=== PATIENT | female | born 1955 | race Caucasian/White ===

== ENCOUNTER 2025-03-18 14:15 | Outpatient (CLI) | payer MEDICARE, BC, SELFPAY ==
--- NOTE | 2025-03-18 14:00 | DI.RAD_ITS ---
Exam(s) XR HIP LT COMPLETE AP PELVIS EXAM: XR HIP LT COMPLETE AP PELVIS CLINICAL HISTORY: left hip DJD. TECHNIQUE: 2D digital imaging was performed. COMPARISON: No exams were available for comparison FINDINGS: Two views No evidence of pelvic nor hip fracture. Right hip appears unremarkable. There are moderate osteoarthritic degenerative changes in the left h ip with moderate joint space narrowing and small marginal osteophytes. Bone density normal. No osse ous lesions. IMPRESSION: Moderate osteoarthritic degenerative changes in the left hip. DATA REPOSITORY: RADIATION DOSE DELIVERED:
== END 2025-03-18 14:16 | disposition home or self-care (01) ==
LOC: DIORS 14:15
PROVIDERS: PCP Family Medicine; Referring Provider Family Medicine; Visit Provider Student in an Organized Health Care Education/Training Program
DX: M16.12 Unilateral primary osteoarthritis, left hip (principal)
CPT/HCPCS: 99214; 73502

== ENCOUNTER 2025-05-20 03:25 | Outpatient (CLI) | payer MEDICARE, BC, SELFPAY ==
[2025-05-20 11:19] LABS: HCT 43.7 % (36.0-46.0); HGB 14.1 g/dL (11.2-15.7); MCH 30.4 pg (27.0-33.0); MCHC 32.3 % (32.0-36.0); MCV 94 fL (80-95); MPV 10.7 fL (8.0-11.0); Platelet Count 246 10^3/uL (130-400); RBC 4.64 10^6/uL (3.93-5.22); RDW 12.8 % (11.7-14.6); RDW-SD 44.0 fL; WBC 6.20 10^3/uL (4.4-10.8)
[2025-05-20 12:10] LABS: Anion Gap 10.2 mmol/L (3-11); BUN 22 mg/dL (7-18); CO2 26.8 mmol/L (21.0-32.0); Calcium 9.7 mg/dL (8.5-10.1); Chloride 103 mmol/L (98-107); Estimated GFR 68.35 (mL/min/1.73m2); Glucose 105 mg/dL (74-106); Potassium 3.8 mmol/L (3.5-5.1); Sodium 140 mmol/L (136-145)
== END 2025-05-20 03:26 | disposition home or self-care (01) ==
LOC: LBO 03:25
PROVIDERS: PCP Family Medicine; Visit Provider Student in an Organized Health Care Education/Training Program
DX: M16.12 Unilateral primary osteoarthritis, left hip (principal); Z01.818 Encounter for other preprocedural examination
CPT/HCPCS: 36415; 80048; 85027

== ENCOUNTER 2025-05-29 05:52 | Day surgery (SDC) | payer MEDICARE, BC, SELFPAY ==
[2025-05-29] VITALS (18 sets, daily range): BP systolic 116–154; BP diastolic 38–81; PULSE 60–77; RESP 11–21; TEMP 36.1–36.6; O2SAT 95–99; BMI 19.4
--- NOTE | 2025-05-29 05:06 | ANES.PREOP_ITS ---
General Info Date of Service Date Performed: 05/29/25 Height: 5 ft 5 in Weight: 53.07 kg Body Mass Index (BMI): 19.4 Surgical Procedure: Operation Date: 05/29/25 07:50 Proposed Procedure Side Surgeon p Hip Total Hip Anterior, Corail Left Rolan Rm MD Meds Allergies and Home Medications Allergies Allergy/AdvReac Type Severity Reaction Status Date / Time No Known Allergies Allergy Verified 05/29/25 06:12 Home Medication ?Medication ?Instructions ?Recorded amlodipine 5 mg tablet 5 mg PO HS 01/01/25 losartan 100 mg tablet 100 mg PO DAILY 01/01/25 pravastatin 10 mg tablet 10 mg PO HS 01/01/25 paroxetine HCl 20 mg tablet 20 mg PO DAILY 03/18/25 latanoprost 0.005 % eye drops 1 drp ophthalmic (eye) Q PM 05/24/25 Current Visit Medications: Current Medications Generic Name Dose Route Start Last Admin Trade Name Freq PRN Reason Stop Dose Admin Acetaminophen 1,000 mg 05/29/25 06:00 Acetaminophen 500 Mg Tab PO 05/29/25 23:59 PREOP NIRMALA Celecoxib 400 mg 05/29/25 06:00 Celecoxib 200 Mg Cap PO 05/29/25 23:59 PREOP NIRMALA Gabapentin 300 mg 05/29/25 06:00 Gabapentin 300 Mg Cap PO 05/29/25 23:59 PREOP NIRMALA Ringer's Solution 1,000 mls @ 80 mls/hr 05/29/25 06:00 IV 05/29/25 23:59 INFUSION NIRMALA Tranexamic Acid/Sodium Chloride 1,000 mg in 100 mls @ 600 mls/hr 05/29/25 06:00 IVPB 05/29/25 23:59 PREOP NIRMALA Cefazolin Sodium/Dextrose 2 gm in 50 mls @ 100 mls/hr 05/29/25 06:00 Ancef Duplex IVPB 05/29/25 23:59 PREOP NIRMALA IV Miscellaneous Supplies 1 each 05/29/25 06:00 Iv Access IV 05/29/25 23:59 DIRECTED NIRMALA Sodium Chloride 0 ml 05/29/25 06:00 Normal Saline Flush 10 Ml Syr IV 05/29/25 23:59 PRN PRN Sodium Chloride 0 ml 05/29/25 06:00 Normal Saline 10 Ml Vial IJ 05/29/25 23:59 DIRECTED PRN Sterile Water 0 ml 05/29/25 06:00 Water,Injection,Sterile 10 Ml Vial IJ 05/29/25 23:59 DIRECTED PRN PFSH Active Problems Active Problems: Problem Status Onset Code Degenerative joint disease of left hip Chronic M16.12 Rosacea Acute L71.9 Osteoporosis Chronic M81.0 Onychomycosis Acute B35.1 Hypertensive disorder Chronic I10 Hyperlipidemia Acute E78.5 Goiter Acute E04.9 Anxiety Chronic F41.9 Surgical History Surgical History History of melanoma excision DOS 10/17/03--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 Tobacco Smoking/Tobacco Use Status: Never Passive smoking exposure: Yes Alcohol Alcohol Intake: current Alcohol intake frequency: holidays/special occasions only Substance Use Substance use: Never Substance use type: does not use Vital Signs and Lab Results Vital Signs Most Recent Vital Signs in EMR: Temp Pulse Resp BP Pulse Ox 36.6 C 68 18 154/81 H 97 05/29/25 06:00 05/29/25 06:00 05/29/25 06:00 05/29/25 06:00 05/29/25 06:00 Lab Results Complete Blood Count: WBC, (4.4-10.8) 6.20 10^3/uL 05/20/25, 11:02 RBC, (3.93-5.22) 4.64 10^6/uL 05/20/25, 11:02 Hgb, (11.2-15.7) 14.1 g/dL 05/20/25, 11:02 Hct, (36.0-46.0) 43.7 % 05/20/25, 11:02 Plt Count, (130-400) 246 10^3/uL 05/20/25, 11:02 Complete Metabolic Panel: Sodium, (136-145) 140 mmol/L 05/20/25, 11:02 Potassium, (3.5-5.1) 3.8 mmol/L 05/20/25, 11:02 Chloride, (98-107) 103 mmol/L 05/20/25, 11:02 Carbon Dioxide, (21.0-32.0) 26.8 mmol/L 05/20/25, 11 :02 BUN, (7-18) 22 mg/dL H 05/20/25, 11:02 Creatinine, (0.55-1.02) 0.9 mg/dL 05/20/25, 11:02 Est GFR (CKD-EPI 2020), (mL/min/1.73m2) 68.35 05/20/25, 11:02 Calcium, (8.5-10.1) 9.7 mg/dL 05/20/25, 11:02 Glucose, (74-106) 105 mg/dL 05/20/25, 11:02 Anesthesia Assessment and Plan Anesthesia History Personal History: No History of Anesthesia Complications Family History: No Family History of Anesthesia Complications Exercise Tolerance Exercise Tolerance: Metabolic Equivalents>4 Cardiac & Pulmonary Exam Cardiac Exam: Normal S1/S2 Heart Sounds Pulmonary Exam: Clear Bilateral Breath Sounds Implantable Cardiac Device Does patient have a Pacemaker or an ICD?: No Airway Exam Known Difficult Airway: No Mallampati Class: 3 Mouth Opening: Normal (> 3cm) Thyromental Distance: Greater than 3 cm Neck Range of Motion: Limited ROM Neck Circumference: Normal Teeth Condition: Normal Dentition ASA Classification ASA Score: ASA 2 Emergency Case?: No NPO Status NPO Status: NPO Clears >2 hours, Solids >8 hours Anesthesia Plan Resuscitation Status: Full Code Anesthesia Technique: Spinal Anesthesia Airway Planned: Natural Airway Monitors Used: Standard Monitors Preoperative Comments:: 69 yo female for ADRIANA. Sig PMHx: HTN (amlodipine, losartan. 132/74 at PCP), osteoporosis, anxiety. never smoker, occ EtOH. ECG (PCP): sinus Labs (PCP): WNL
[2025-05-29] MEDS: Gabapentin 300 MG CAP PO (06:30)
[2025-05-29] MEDS: Acetaminophen 500 MG TAB 1000 MG PO (06:30)
[2025-05-29] MEDS: Celecoxib 200 MG CAP 400 MG PO (06:30)
[2025-05-29] MEDS: Lactated Ringers 1,000 ML 80 ML IV (06:44)
--- NOTE | 2025-05-29 07:19 | PDOC.DSDIS_ITS ---
Date of service: 05/29/25 Discharge Plan Disposition Patient Disposition: Home Condition: Good Discharge Details Reason For Visit: L THR Attending Provider: Rolan Rm Primary Care Provider: Hero Rondon Home Meds and New Rx's Prescriptions: New acetaminophen 500 mg tablet 1,000 mg PO TID Qty: 90 3RF aspirin 81 mg tablet,delayed release (DR/EC) 81 mg PO BID Qty: 60 0RF celecoxib 200 mg capsule 200 mg PO BID Qty: 60 0RF dexamethasone 4 mg tablet 4 mg PO DAILY Qty: 2 0RF docusate sodium 100 mg capsule 100 mg PO BID PRNQty: 28 0RF pantoprazole 40 mg tablet,delayed release (DR/EC) 40 mg PO DAILY Qty: 14 0RF oxycodone 5 mg tablet 5 mg PO Q4H MDD 6 tabs PRN (Reason: pain) Qty: 12 0RF Continued amlodipine 5 mg tablet 5 mg PO HS losartan 100 mg tablet 100 mg PO DAILY pravastatin 10 mg tablet 10 mg PO HS paroxetine HCl 20 mg tablet 20 mg PO DAILY latanoprost 0.005 % drops 1 drp ophthalmic (eye) QPM Patient Comments: PLACE ONE DROP INTO IN EACH EYE AT BEDTIME Discharge Instructions Additional Instructions: Total Hip Discharge Instructions Activity: The most important activity is to walk. You should try to take short walks a few times a day. You have no restrictions on movement or positioning, but do not try to force what you do. You will find some stiffness and weakness with hip flexion (lifting your knee). Do not try to strengthen this too early, continue to practice walking and stairs and this will come. - Outpatient physical therapy can be helpful to help return you to a normal gait and improve your flexibility and strength. This can start around 2 weeks. For some patients, it?s not necessary. Usually this is determined at the time of discharge or at the first post-operative visit. - You should wear the VELIA hose on both legs for 2 weeks. Dressing: Keep the surgical dressing in place for at least one week. After the first week it may be removed and replace with light gauze and tape or nothing. It may get wet after 3 days but avoid soaking the dressing. If it gets wet, just lightly pat dry. It is important to always keep some gauze between skin folds, especially when you are sitting. Spend some time with the wound exposed when you are lying flat as the incision does wrinkle onto itself. Medications: - You should take Tylenol and an anti-inflammatory Celebrex as your primary pain control medications. If the Celebrex is too expensive or not covered, please call the office for another alternative (Advil/Ibuprofen or Naproxen/Aleve). - You have been prescribed a stronger pain medication Oxycodone for breakthrough pain, take as needed as prescribed. - You have also been prescribed a stomach acid reduction agent Pantoprozole to help reduce stomach acid and reflux. - You have also been prescribed Decadron to help with post-operative nausea and pain. You will take this for two days starting tomorrow. - You will be taking Aspirin 81mg twice a day for DVT prevention unless instructed otherwise. - If you have constipation you should take Colace or Miralax (both [id number]). It takes most people 3-4 days to have a bowel movement. Follow-up: 2 weeks If you have any acute concerns or questions, please do not hesitate to contact the office at [phone]. You may contact Dr. Rm with any questions after hours through the hospital at [phone] or on his cell phone at [phone]. Referrals: Rolan Rm MD [ [facility] STAFF PHYSICIAN, Orthopaedic Surgical] Equipment/Supplies: Walker Activity:: Activity as Tolerated Shower/Bathe:: 72 hours Diet:: As Tolerated Discharge Orders Discharge Orders: Discharge Order (Routine); Ordered 05/29/25 Ordered By: Abhijit Araujo DS: Diagnosis Discharge Diagnosis (1) Degenerative joint disease of left hip: Status: Chronic
[2025-05-29] MEDS: ceFAZolin 2 GM/50 ML BAG IVPB (07:49)
[2025-05-29] MEDS: TRANEXAMIC ACID/SOD. CHL. 1,000 MG/100 ML BAG 600 MG IVPB (07:51)
--- NOTE | 2025-05-29 09:01 | DI.RAD_ITS ---
Exam(s) XR HIP LT IN OR EXAM: XR HIP LT IN OR CLINICAL HISTORY: Degenerative joint disease of left hip TECHNIQUE: 2D and realtime digital imaging was performed. CONTRAST MATERIAL: Refer to procedure report. COMPARISON: CR XR HIP MIN 2V LT from 11/26/2024 CR XR HIP LT COMPLETE AP PELVIS from 03/18/2025 FINDINGS: Fluoroscopy was provided for Dr. Rm during the performance of a left total hip arthroplasty. Please refer to the procedure report for complete details. Ka,r=2.06 mGy IMPRESSION: RADIATION DOSE DELIVERED: 0.0 0.0 0
--- NOTE | 2025-05-29 09:07 | W.PM.OP ---
Operative Note Operative Note PRE-OP DIAGNOSIS: Left Hip Osteoarthritis POST-OP DIAGNOSIS: other (Left Hip Osteoarthritis and Synovitis) PROCEDURE: Left Anterior Total Hip Arthroplasty with Intraoperative Navigation SURGEON: Rolan Rm PBX REPAIRER: Abhijit Araujo ANESTHESIA TYPE: Spinal Refer to Anesthesia Record ESTIMATED BLOOD LOSS: 150 PATHOLOGY: none sent TOURNIQUET TIME: 0 COMPLICATIONS: None Patient was transported to: PACU Patient's condition: stable Implants: 1. Depuy Boynton Acetabular Component, 50mm 2. Depuy Acetabular Liner, [id number] 3. Depuy Corail Short Neck Collared Femoral Stem, Size 11 4. Depuy Altrx Ceramic Femoral Head, Size 32+5mm Indications: I have seen Mayra in clinic for symptoms of hip arthritis, confirmed with radiographic findings. She has exhausted nonoperative methods and was having significant limitations in daily function and desired better function and less pain. I discussed the technical details of a hip replacement. I explained the risks of the procedure to include, but not limited to, bleeding, infection, pain, stiffness, fracture, damage to nerves and vessels, damage to muscles and tendons, loosening, instability, leg length inequality, need for repeat procedure, blood clot and cardiopulmonary demise. Despite these risks, Mayar elected to proceed. Findings: There was arthritic change about the femoral head mostly with some chondromalacia of the acetabulum. There was synovitis seen throughout the hip as well. Procedure Description: Marya was greeted in the preoperative holding area where the correct side was identified and marked. The consent was reviewed with the patient and signed. The history and physical was updated. All questions were answered. She was taken back to the operating room. A spinal anesthestic was then administered. The feet were wrapped with cast padding and Coban and then placed into the boot liners and then into the boots. Care was taken to protect the skin and make sure the heels were fully down and the boots were stable. The patient was then positioned onto the HANA table. Both legs were held in a neutral position. SCDs were applied. The patient was then slid down onto a peroneal post. Prophylactic antibiotics in the form of Cefazolin were administered. 1g of Tranxemic Acid was given intravenously within 30 minutes of incision. The left leg was then prepped with Chloraprep and draped in a standard fashion. A second prep with Chloraprep was performed prior to placement of a shower-curtain type drape with Iodine impregnated skin protection. A timeout to confirm correct identity, side and site, procedure, allergies, anesthesia, and medical concerns was performed. An obliquely oriented incision was made starting lateral to the ASIS and running distal over the Tensor Fascia Brigitte (TFL) muscle belly toward the fibular head, approximately 10cm. The skin and soft tissue was dissected sharply, through Georgiana?s fascia, and to the fascia of the TFL. With the fascia and superior border of the IT band identified, the fascia was incised with a new knife just above any perforators from the IT band. The TFL muscle belly was bluntly dissected away from the fascia and moved laterally. The fat between TFL and rectus was identified to ensure the dissection was not within the TFL. Blunt dissection created space between abductors and the capsule and retractor was placed over the lateral femoral neck. The fibers of the rectus femoris tendon were identified and these were freed from the anterior capsule. A second cobra retractor was placed around the medial femoral neck. The TFL was further retracted laterally to show the deep fascia. Careful dissection through this layer identified three main crossing vessels of the lateral femoral circumflex. These were cauterized in multiple locations and then cut without any noticeable bleeding. The TFL was further released bluntly from the deep fascia to expose anterior hip capsule and fat The soft tissue orthopaedic retractor was then placed beneath the TFL and against sartorius and medial soft tissues to protect and retract the soft tissues. A T-capsulotomy was then performed starting at the superior lateral acetabulum and moving distally to the intertrochanteric ridge. These capsular flaps were tagged with a No. 1 Vicryl and elevated from within. The capsular flaps were released to the shoulder of the lateral neck and to the lesser trochanter to give excellent visualization of the proximal femur. A neck osteotomy was performed using an oscillating saw based on preoperative templates. This cut started in the shoulder and of the lateral neck and exited medially. The saw was at all times directed medially to avoid injury to the greater trochanter. Gross traction was applied to the leg and the osteotomy opened. The femoral head was removed with a corkscrew, making sure to protect the TFL on its exit. Traction was released after head removal. This was measured on the back table to determine the starting reamer size. Portions of the rectus obscuring visualization were minimally elevated off the superior acetabulum. An anterior retractor was placed over the anterior wall between capsule and labrum and attached to the Gripper retraction system. There was notable synovitis seen within the hip which was resected sharply along with a rongeur. The femur was rotated to 90 degrees and medial capsule was fully released until the lesser trochanter was palpable and visible; the femur was returned to 30 degrees. A posterior retractor was placed similarly between capsule and labrum. This provided excellent visualization. The contents of the cotyloid fossa were removed with electrocautery and the labrum was removed with a knife. There was some chondromalacia of the superior acetabulum. Acetabular reaming began with a 44mm reamer. This first reaming was directed anterior to posterior and medial to get down to the true floor. This was inspected and reamed until the true floor was reached. The anterior retractor was then released and entry and exit was provided by traction on the capsular flaps. I then reamed sequentially up to a 50mm reamer where good fit was obtained. The larger reamers were oriented based on anatomical reference of the anterior and lateral douglas to ensure proper abduction and anteversion. Positioning and size was confirmed with the fluoroscopy. A 50mm Depuy Boynton acetabular component was selected. The acetabulum was reamed around the periphery with the selected acetabular size to prevent a rim fit. The deep tissues were irrigated. The acetabular component was then impacted in a position of about 40-45 degrees of abduction and 15-20 degrees of anteversion, using the patient?s anatomy as the ultimate landmark. Fluoroscopy was used to confirm this. There was excellent service desk lead of the acetabular component and the inserting handle was removed. The acetabular liner, Depuy [id number] polyethylene liner, was inserted and lined up with the tines of the acetabular component. There was no soft tissue interposition. The liner was then impacted into position and confirmed to be well-seated. A portion of the memo-articular cocktail was then injected around the acetabulum into the capsule and periosteum. This cocktail consisted of 123mg of Ropivacaine, 0.25mg of Epinephrine, 0.04mg of Clonidine, and 15mg of Ketorolac, diluted to 50cc. The leg was rotated to 120 degrees. Any remaining medial capsule was released until the lesser trochanter was easily palpable. A retractor was placed medially. The lateral capsule was further released into the shoulder to allow access to the greater trochanter. A Andersen retractor was placed over the greater trochanter which allowed the trochanter to flip in front of the capsule for excellent exposure. The leg was brought down into maximal extension and 20 degrees of adduction while ensuring there was no impingement on the acetabulum. Any remnant capsule within the trochanter was released. Piriformis and obturator externis were identified and protected. There was excellent access to the proximal femur. The lateral neck remnant was removed with a rongeur. A blunt canal probe was used to identify the canal and trajectory for later broaching. A box osteotome initiated the broach course. A small curved rasp and a curved curette were used to work laterally. Broaching then began with a size 8 Corail broach. This was inserted manually around the trochanter and into the canal before mallet blows. The broach was seated to a few millimeters below the cut level based on the neck cut and the preoperative template. Sequential broaching was continued manually until a tight fit was obtained with good rotational control of the femur. A trial short neck was inserted along with a +5 trial head. The leg was brought out of extension and adduction and then reduced with traction and internal rotation. The leg was stable anteriorly in a position of 30 degrees of extension and 90 degrees of external rotation. Fluoroscopy was used to ensure there was no fracture and the stem was seated well. Leg lengths were checked with an AP pelvis and pelvic reference points. Resilinc navigation system was used to confirm appropriate positioning and leg length and offset. Once content with the desired offset and leg lengths, the leg was brought back into extension, external rotation and adduction. The periosteum and surrounding tissue was injected with remaining portion of the memo-articular cocktail. The proximal femur was irrigated as well as the deep tissues. The Depuy Corail short neck collared stem, size 11, was then manually inserted into the proximal femur making sure to control rotation. It was then malleted into position with light blows, giving breaks to allow bone expansion and decrease risk of fracture. The selected Depuy Altrx Ceramic Head, size 32+5mm, was then placed onto the clean and dry trunnion and secured with impaction onto the tapered fit. The leg was brought back out of extension and adduction and reduced with traction and internal rotation. Stability was confirmed with no shuck at 90 degrees of external rotation and 30 degrees of extension. No impingement through range of motion arc. Final x-ray images were obtained with fluoroscopy to confirm adequate positioning and no intraoperative fracture. The deep tissues were thoroughly irrigated with Surgiphor, betadine solution. This was allowed to sit in the wound for 3 minutes before being thoroughly irrigated out with normal saline. The capsule was then reapproximated with the previously placed sutures and the indirect head of the rectus was inspected and reapproximated with a #1 Vicryl. The TFL fascia was finally closed with a No. 2 Stratafix, barbed suture. Deep tissues were then reapproximated with 0 Vicryl and a running 2-0 Vicryl. The skin was closed with a running 4-0 Monocryl in a subcuticular fashion. This was reinforced with skin glue. A Mepilex silver dressing was applied. At the end of the case, all counts were correct. Mayra was transferred to the hospital bed without difficulty and suffering no apparent complication. She has a good prognosis. Physical therapy will start today and without restrictions, weight-bearing as tolerated. Aspirin 81mg BID will be used for DVT prophylaxis. Date of Procedure: 05/29/25
--- NOTE | 2025-05-29 09:55 | W.ANESPOSTOP ---
Postoperative Evaluation Date, Time and Location Date Performed: 05/29/25 Time Performed: 09:55 Patient Location: PACU Vital Signs Most Recent Imported Vital Signs: Most Recent Vital Signs Temp Pulse Resp BP Pulse Ox 36.5 C 60 18 130/52 L 99 05/29/25 09:31 05/29/25 09:35 05/29/25 09:35 05/29/25 09:31 05/29/25 09:35 Pain Score Most Recent Pain Score: Most Recent Pain Score Pain Level 0 05/29/25 09:38 Assessment Mental Status: Awake (Alert & Oriented to Patient Baseline) Airway and Respiratory Function: Patent airway with normal (patient baseline) respiratory exam Cardiovascular Function: Hemodynamically Stable Hydration Status: Adequately Hydrated Nausea & Vomiting: No Nausea or Vomiting Pain: Pain is tolerable per patient (spinal still waning. ) Peripheral Nerve Block: Patient did not receive a nerve block
--- NOTE | 2025-05-29 10:33 | IN_ITS ---
PT Notes Visit Reasons: L THR Physical Therapy Day Surgery Initial Evaluation Date: 05/29/2025 Referring Doctor: FIDE Berg/Dr. Rm PT Orders: PT CONSULT: PT evaluation status post Ortho surgery Precautions: WBAT left LE with assistive device Patient Profile/Admitting Diagnosis: Mayra is a 69-year-old female presenting status post elective left ADRIANA under spinal anesthesia by Dr. Rm on 05/29/2025. 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 Patient independent ambulation without assistive device, ADLs, home management, meal prep Equipment Owned/DME: None, fitted for and issued FWW Subjective: Patient reports she is not having any pain and is eager to return home Objective: [] General Observation: Female presented semireclined on stretcher ice to left hip, IV access right hand, has been present in room Mental Status: Alert and oriented x 4, able to follow instructions, cooperative, agreeable to participate in evaluation Pain: Denies pain at this time ROM: [] BUE: Within normal limits Right Lower Extremity: [] Within normal limits Left Lower Extremity: Hip flexion 95 degrees, abduction 15 degrees, hip extension 5 degrees, knee and ankle within normal limits Strength: [] BUE: 5/5 Right Lower Extremity: 5/5 Left Lower Extremity: Hip flexion: 3 -/5; hip abduction: 3 -/5; hip extension: 3/5; knee extension: >/=to 3 /5; knee flexion: 3 -/5 ankle DF: 4/5 ; ankle PF: 4/5 Sensation: Intact Bed Mobility/Transfers: [] Supine to sit supervision Sit to stand supervision cues to push up from surface Stand to sit supervision cues to reach back Bed to chair SBA with cues for safe approach with FWW Gait: Ambulated with FWW SBA 200 feet reduced step length bilaterally reciprocal pattern narrow base of support Stairs: 3 4 steps? and 2 6 steps with B rails SBA with continuous cues for sequencing step to pattern 3 4 steps? and 2 6 steps with right rail CGA with continuous cues for sequencing step to pattern Balance: Static Sitting: Normal Dynamic Sitting: Good Static Standing: Good Dynamic Standing: Fair plus Special Tests: [] Mobility Limitations Standardized Measure [] [facility] AM-PAC 6 clicks Basic Mobility Inpatient Short Form: [] Raw Score: 23 CMS Score: 11.20%deficit Informed Consent/Education: Patient instructed in purpose of PT consult. Treatment: 21030 therapeutic exercise: Packet containing ADRIANA exercise protocol has been given to patient. Education and training on initial set of 5 reps of exercises that can be done at home have been completed with patient. Assessment: Patient is a 69-year-old pleasant female who presents with clinical signs and symptoms consistent with current/admitting diagnoses that have resulted to mobility limitations, gait instability, generalized weakness, and impairment of motor control as demonstrated by the following impairment level findings: 1. Decreased strength to left hip major muscle groups 2. Impaired standing balance 3. Limitation of joint range of motion in left hip 4. Impaired functional activity tolerance Impairments are contributing to the following functional limitations: 1. Inability to safely ambulate without assistive device 2. Increase completion time for mobility ADL performance 3. Increased fall risk 4. Difficulty on stairs requiring cues for sequencing Patient is assessed as a low complexity based on the following: History: 69-year-old female with impairment level findings, functional limitations, and past medical history as indicated above Examination: Demonstrable impairment in strength, balance, and mobility level with underlying impairments and functional limitations as documented above Presentation: Stable Decision Making: Low Goals: N/A. PT evaluation and 1-2 treatment sessions only for functional mobility training using recommended AD and for HEP instruction. Plan of Care/Treatment Plan: N/A. PT evaluation and 1-2 treatment session only for functional mobility training using recommended AD and for HEP instruction. DISCHARGE RECOMMENDATIONS: Home with HEP TREATMENT CODE/TIME: [id number] Thank you for the opportunity to participate in the care of this patient. Aliza Lo, PT [facility]
== END 2025-05-29 11:45 | disposition home or self-care (01) ==
PROVIDERS: PCP Family Medicine; Visit Provider Student in an Organized Health Care Education/Training Program
PROC: (CPT 27130; principal; 2025-05-29 07:30)
DX: M16.12 Unilateral primary osteoarthritis, left hip (principal); I10 Essential (primary) hypertension
CPT/HCPCS: 20985; 27130; 97110; 97161; 73501; C1776; J0690; J1100; J2371; J2401; J2405; J2704

== ENCOUNTER 2025-06-13 11:30 | Outpatient (CLI) | payer MEDICARE, BC, SELFPAY ==
--- NOTE | 2025-06-13 09:45 | DI.RAD_ITS ---
Exam(s) XR HIP LT COMPLETE AP PELVIS EXAM: XR HIP LT COMPLETE AP PELVIS CLINICAL HISTORY: 1ST POST OP L ADRIANA. TECHNIQUE: 2D digital imaging was performed. Two images were obtained. AP pelvis and lateral left hip views were obtained. COMPARISON: CR XR HIP LT COMPLETE AP PELVIS from 03/18/2025 XA XR HIP LT IN OR from 05/29/2025 FINDINGS: BONES: There are stable post operative changes of a left total hip arthroplasty present. No fracture or dislocation. JOINTS: The orthopedic hardware is in good position. No evidence of hardware loosening. SOFT TISSUE: Normal. IMPRESSION: Stable left total hip arthroplasty. DATA REPOSITORY: RADIATION DOSE DELIVERED:
== END 2025-06-13 11:31 | disposition home or self-care (01) ==
LOC: DIORS 11:30
PROVIDERS: PCP Family Medicine; Referring Provider Family Medicine; Visit Provider Student in an Organized Health Care Education/Training Program
DX: Z47.1 Aftercare following joint replacement surgery (principal); Z96.642 Presence of left artificial hip joint; M25.552 Pain in left hip
CPT/HCPCS: 99024; 73502

== ENCOUNTER → 2025-07-11 10:49 | Outpatient (BNVA) | payer MEDICARE, BC, SELFPAY | PROVIDERS: PCP Family Medicine; Referring Provider Family Medicine; Visit Provider Physician Assistant | DX: Z47.1 Aftercare following joint replacement surgery (principal); Z96.642 Presence of left artificial hip joint | CPT/HCPCS: 99024 ==